=== PATIENT | female | born 1985 | race Two or more races ===

== ENCOUNTER 2016-11-11 09:19 | Emergency (ER) | payer BC ==
[2016-11-11 09:44] VITALS: BP 114/84; PULSE 57; RESP 14; TEMP 98.7; O2SAT 97
--- NOTE | 2016-11-11 09:54 | DX ---
Right Hand 3 Views History: Fall snowboarding, pain. Comparison: None available. Findings: No fractures identified. Alignment is normal. Bone mineralization is normal. There is no si gnificant degenerative change. There is no focal soft tissue swelling. Impression: No acute osseous findings.
--- NOTE | 2016-11-11 10:04 | UCPHY ---
H & P Patient Type: New Chief Complaint Nursing Narrative: right thumb area pain . fall snow boarding Time Seen by Provider: 11/11/16 09:41 HPI/ROS: CHIEF COMPLAINT: Right thumb pain HISTORY OF PRESENT ILLNESS: The patient is a 31-year-old female who fell snowboarding yesterday and now complains of pain at the base of her right thumb. She does not remember specific accident or injury. No snuffbox pain or tenderness. No wrist pain or tenderness. No other injuries, normal range of motion. No swelling or bruising. REVIEW OF SYSTEMS: Constitutional: denies: chills, fever, recent illness, recent injury EENTM: denies: blurred vision, double vision, nose congestion Respiratory: denies: cough, shortness of breath Cardiac: denies: chest pain, irregular heart rate, lightheadedness, palpitations Gastrointestinal/Abdominal: denies: abdominal pain, diarrhea, nausea, vomiting, blood streaked stools Genitourinary: denies: dysuria, frequency, hematuria, pain Musculoskeletal: See HPI Skin: denies: lesions, rash, jaundice, bruising Neurological: denies: headache, numbness, paresthesia, tingling, dizziness, weakness Hematologic/Lymphatic: denies: blood clots, easy bleeding, easy bruising Immunologic/allergic: denies: HIV/AIDS, transplant EXAM: GENERAL: Well-appearing, well-nourished and in no acute distress. HEAD: Atraumatic, normocephalic. EYES: Pupils equal round and reactive to light, extraocular movements intact, sclera anicteric, conjunctiva are normal. ENT: TMs normal, nares patent, oropharynx clear without exudates. Moist mucous membranes. NECK: Normal range of motion, supple without lymphadenopathy or JVD. LUNGS: Breath sounds clear to auscultation bilaterally and equal. No wheezes rales or rhonchi. HEART: Regular rate and rhythm without murmurs, rubs or gallops. ABDOMEN: Soft, nontender, normoactive bowel sounds. No guarding, no rebound. No masses appreciated. BACK: No CVA tenderness, no spinal tenderness, step-offs or deformities EXTREMITIES: Pain at the base of right thumb as well as the proximal phalanx and metacarpal aspect. No wrist pain. No snuffbox tenderness. No bruising or swelling. Normal range of motion and strength. No laxity of the tendons. NEUROLOGICAL: Cranial nerves II through XII grossly intact. Normal speech, normal gait. 5/5 strength, normal movement in all extremities, normal sensation PSYCH: Normal mood, normal affect. SKIN: Warm, dry, normal turgor, no visible rashes or lesions. Source: Patient Exam Limitations: No limitations - Personal History LMP (Females 10-55): 1-7 Days Ago - Medical/Surgical History Hx Asthma: No Hx Chronic Respiratory Disease: No Hx Diabetes: No Hx Cardiac Disease: No Hx Renal Disease: No Hx Cirrhosis: No Hx Alcoholism: No Other PMH: PCP NONE. tonsilectomy. Tet ? Flu NONE - Family History Significant Family History: No pertinent family hx - Social History Smoking Status: Never smoked Alcohol Use: Sober Drug Use: None Constitutional: Initial Vital Signs Temperature (C) 37.1 C 11/11/16 09:40 Heart Rate 57 L 11/11/16 09:40 Respiratory Rate 14 11/11/16 09:40 Blood Pressure 114/84 H 11/11/16 09:40 O2 Sat (%) 97 11/11/16 09:40 O2 Delivery Mode Room Air Allergies/Adverse Reactions: No Known Allergies Allergy (Unverified 11/11/16 09:43) Home Medications: Medication Instructions Recorded Hydrocodone/APAP 5/325 [Chuckey 1 - 2 tab PO Q4H PRN #20 tab 11/11/16 5/325 (RX)] Medical Decision Making - Diagnostics Imaging: X-ray: Hand x-ray was obtained. I viewed the images myself on the PACS system. My interpretation of the images is: Negative. The radiologist interpretation is negative. ED Course/Re-evaluation: We discussed the x-ray results. The patient is relieved. She does have mild pain with valgus stress of the MCP joint In her right thumb. No visible laxity appreciated compared to the other hand. I will place her in a thumb spica splint and have her follow up with Hand surgery. Differential Diagnosis: Partial list of the Differential diagnosis considered include but were not limited to; gamekeeper's thumb, fracture, contusion, and although unlikely based on the history and physical exam, I also considered wrist injury, elbow injury, neuropathy. I discussed these differential diagnoses and the plan with the patient as well as the usual and expected course. The patient understands that the diagnosis is provisional and that in medicine we are not always correct and that further workup is often warranted. Usual and customary warnings were given. All of the patient's questions were answered. The patient was instructed to return to the emergency department should the symptoms at all worsen or return, otherwise to followup with the physician as we discussed. Departure - Departure Disposition: Home, Routine, Self-Care Clinical Impression: Gamekeeper's thumb of right hand Qualifiers: Encounter type: initial encounter Qualifier Code: (S53.31XA) Traumatic rupture of right ulnar collateral ligament, initial encounter Condition: Fair Instructions: Skier's Thumb (ED) Referrals: NONE *PRIMARY CARE P,. [Primary Care Provider] - As per Instructions Mejia Terry MD [Medical Doctor] - As per Instructions Prescriptions: Hydrocodone/APAP 5/325 [Chuckey 5/325 (RX)] 1 - 2 tab PO Q4H PRN #20 tab PRN Reason: Pain, Moderate - PQRS PQRS Measurement: Not applicable
== END 2016-11-11 10:24 | disposition home or self-care (01) ==
LOC: CED 09:19
DX: M79.644 Pain in right finger(s) (principal)
CPT/HCPCS: 73130-PO; 99204-PO; G0463-PO; L3807